=== PATIENT | male | born 1995 | race Hispanic/Latino ===

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

== ENCOUNTER 2017-08-27 17:53 | Emergency (ER) | payer SELFPAY ==
[~2017-08-27] VITALS: Ht 185.4 cm; Wt 65.0 kg
[2017-08-27 18:24] LABS: URINE BILIRUBIN - DIPSTICK NEGATIVE (NEGATIVE); URINE BLOOD DIPSTICK SMALL (NEGATIVE); URINE COLOR YELLOW; URINE GLUCOSE - DIPSTICK NEGATIVE (NEGATIVE); URINE KETONE NEGATIVE (NEGATIVE); URINE NITRITE - DIPSTICK NEGATIVE (Negative); URINE PROTEIN - DIPSTICK NEGATIVE (NEG-TRACE); URINE UROBILINOGEN - DIPSTICK 0.2 E.U./dL (0.2)
[2017-08-27 18:35] LABS: URINE LEUK ESTERASE MODERATE (NEGATIVE)
[2017-08-27 18:36] LABS: URINE CLARITY CLOUDY
[2017-08-27 18:38] LABS: URINE BACTERIA FEW hpf; URINE SQUAMOUS EPITHELIAL CELL FEW EPI/hpf (0-FEW); URINE WBC TNTC WBC/hpf (0-5)
[2017-08-27] MEDS ORDERED: DOXYCYCL HYC100 MG PO (19:23)
[2017-08-27 19:40] VITALS: BP 121/88
== END 2017-08-27 19:40 | disposition home or self-care (01) | DRG 690 ==
LOC: ED 17:53
PROVIDERS: Emergency Medicine
DX: A54.01 Gonococcal cystitis and urethritis, unspecified (principal)

== ENCOUNTER 2019-01-13 19:06 | Emergency (ER) | payer SELFPAY ==
[~2019-01-13] VITALS: Ht 185.4 cm; Wt 72.7 kg
[~2019-01-13 19:06] MED LIST changes: +DOXYCYCL HYC100 MG PO
[2019-01-13 19:40] VITALS: BP 132/83
== END 2019-01-13 19:40 | disposition home or self-care (01) | DRG 950 ==
LOC: ED 19:06
DX: S91.301D Unspecified open wound, right foot, subsequent encounter (principal); X58.XXXD Exposure to other specified factors, subsequent encounter